=== PATIENT | male | born 1960 | race Caucasian/White ===

== ENCOUNTER → 2016-10-20 | Outpatient (CLI) | payer BC ==
--- NOTE | 2016-10-20 12:05 | RAD ---
EXAM DESCRIPTION: Barium Swallow CLINICAL HISTORY: 56 years Male, D COMPARISON: None. FINDINGS: Double contrast esophagram demonstrates an unremarkable appearance of the esophageal mucosa throughout. Swallowing mechanism intact. Smooth tapered stricture present at the GE junction. This prevents passage of 13 mm barium tablet. Six total fluoroscopy spot images. Fluoroscopy time less than one minute IMPRESSION: Distal esophageal stricture likely peptic. Recommend gastroenterology consultation. Electronically signed by: Frank Brennan MD 10/20/2016 12:04 PM CDT
== END | disposition home or self-care (01) ==
LOC: RAD 08:16
PROVIDERS: ATTEND Nurse Practitioner Family
DX: R13.10 Dysphagia, unspecified (principal)

== ENCOUNTER → 2017-06-15 | Outpatient (CLI) | payer BC | LOC: GMAJ 17:10 | PROVIDERS: ATTEND Family Medicine | DX: L03.116 Cellulitis of left lower limb (principal) ==

== ENCOUNTER → 2017-06-16 | Outpatient (CLI) | payer OTHER ==
--- NOTE | 2017-06-16 17:11 | US ---
EXAM DESCRIPTION: Venous,Lower Extremity LT: ULTRASOUND. CLINICAL HISTORY: CELLULITIS OF LEFT LOWER LEG COMPARISON: None Available. TECHNIQUE: Two -dimensional and doppler sonographic evaluation of the deep venous system of the left lower extremity. FINDINGS: Doppler evaluation shows normal color flow and normal phasicity and augmentation of the left common femoral vein, femoral vein, popliteal vein, greater/lesser saphenous vein, peroneal, and posterior tibial vein. The left lower extremity deep veins showed normal occlusion with transducer pressure. Two-dimensional survey showed no echogenic thrombus within these veins. IMPRESSION: 1. Duplex ultrasound evaluation of the left lower extremity deep venous system showing no evidence of thrombosis or embolism. Electronically signed by: Hemant Tang MD 06/16/2017 5:10 PM [employer] CONSULTANT
== END | disposition home or self-care (01) ==
LOC: US 09:15
PROVIDERS: ATTEND Family Medicine
DX: L03.116 Cellulitis of left lower limb (principal)

== ENCOUNTER → 2018-07-16 | Outpatient (CLI) | payer BC ==
--- NOTE | 2018-07-16 13:44 | MRI ---
Study: MRI of the Left Hand. Indication: Left hand abscess Technique: Multiplanar, multi sequence MRI of the left hand was obtained without intravenous contrast. Comparison: None. Findings: Extensive subcutaneous edema of the wrist and hand and most pronounced at the dorsal aspects. External skin marker placed along the dorsal/radial margin at the level of the proximal aspect of the first metacarpal. Within the subcutaneous fat underlying this site there is multilobulated subcutaneous fluid collection measuring approximately 20 mm craniocaudal by 18 mm AP 17 mm transverse. Given history, this could reflect a abscess. There is mild tenosynovitis of the extensor tendons of the hand. No acute fracture or features of osteomyelitis. 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 Tearing of the central substance TFC likely present. Impression: Extensive cellulitis throughout the visualized portions of the left hand and wrist with a focal subcutaneous fluid collection of the dorsal/radial of the and aspect adjacent to the proximal first metacarpal. This is concerning for abscess given history, however sterility is uncertain. Targeted ultrasound evaluation and aspiration could be performed as clinically indicated. Additional findings as above. Electronically signed by: Param Rivas MD 07/16/2018 1:42 PM SETTLEMENT WORKER
== END ==
LOC: MRI 12:12
PROVIDERS: ATTEND Nurse Practitioner Family
DX: L02.512 Cutaneous abscess of left hand (principal)